=== PATIENT | female | born 1950 | race Caucasian/White ===

== ENCOUNTER → 2017-06-15 | Outpatient (CLI) | payer BC ==
[~2017-06-15] MED LIST: CMD3 PO; PRCUNK PO
--- NOTE | 2017-06-15 09:09 | DIAGNOSTIC IMAGING REPORT ---
RIGHT PELVIS UNILATERAL HIP 2 VIEW CLINICAL HISTORY: RIGHT HIP PAIN Right COMPARISON STUDY: Pelvis and hips 07/17/2016. FINDINGS: There is again noted a right total hip arthroplasty. The hardware appears intact. No abnormal periprosthetic lucency. No fracture or dislocation within the pelvis or hips. The sacrum is intact. Moderate osteoarthritis within the left hip, unchanged. IMPRESSION: 1. No acute fracture or dislocation within the pelvis or hips. 2. Right total hip arthroplasty. The hardware is intact. 3. Moderate left hip osteoarthritis, unchanged. Electronically signed by: Haroldo Gregory M.D. 06/15/2017 9:07 AM Dictated Date/Time: 06/15/2017 9:05 AM
== END | disposition home or self-care (01) ==
LOC: C.RDSM 11:06
PROVIDERS: ATTEND Physician Assistant
DX: T84.84XA Pain due to internal orthopedic prosthetic devices, implants and grafts, initial encounter (principal); Z96.641 Presence of right artificial hip joint; Y83.1 Surgical operation with implant of artificial internal device as the cause of abnormal reaction of the patient, or of later complication, without mention of misadventure at the time of the procedure; M16.12 Unilateral primary osteoarthritis, left hip

== ENCOUNTER 2021-12-14 07:58 | Observation (INO) ==
--- NOTE | 2021-11-18 15:31 | PAT Medication Instructions ---
Medication Instructions Date of Service November 18, 2021 Home Medications Blood Pressure Supplement 1 dose PO QAM amlodipine 5 mg tablet 5 mg PO QAM ascorbic acid (vitamin C) 500 mg capsule,extended release (Vitamin C) 500 mg PO DAILY cholecalciferol (vitamin D3) 50 mcg (2,000 unit) capsule (Vitamin D3) 50 mcg PO DAILY coenzyme Q10 100 mg capsule (Co Q-10) 100 mg PO DAILY losartan 100 mg tablet 100 mg PO QAM resveratrol 100 mg capsule 100 mg PO DAILY thyroid (pork) 120 mg tablet ([place]ard Thyroid) 120 mg PO Q OTHER DAY thyroid (pork) 90 mg tablet (Leonard Thyroid) 90 mg PO Q OTHER DAY Continue as directed thyroid (pork) 120 mg tablet (Leonard Thyroid) 120 mg PO Q OTHER DAY thyroid (pork) 90 mg tablet (Leonard Thyroid) 90 mg PO Q OTHER DAY STOP taking 2 weeks before surgery coenzyme Q10 100 mg capsule (Co Q-10) 100 mg PO DAILY Blood Pressure Supplement 1 dose PO QAM resveratrol 100 mg capsule 100 mg PO DAILY DO NOT take the morning of surgery losartan 100 mg tablet 100 mg PO QAM ascorbic acid (vitamin C) 500 mg capsule,extended release (Vitamin C) 500 mg PO DAILY cholecalciferol (vitamin D3) 50 mcg (2,000 unit) capsule (Vitamin D3) 50 mcg PO DAILY Take morning of surgery With a small sip of water, OTHERWISE NOTHING TO EAT OR DRINK AFTER MIDNIGHT: amlodipine 5 mg tablet 5 mg PO QAM Other Notes If you have any questions please call us at [phone] or [phone] or [phone] or [phone]
--- NOTE | 2021-11-21 12:51 | Anesthesiology Consultation ---
Date of Service November 21, 2021 Assessment & Plan (1) Encounter for pre-operative examination: Chart Review Chart Review: Acceptable Risk for Surgery (pending surgeon ordered PCP clearance and preop Covid testing results ) and Patient seen in Pre Admission Testing - Awaiting surgeon ordered PCP clearance 11/22/21 Pt has significant urinary retention post op (including with 2009 Right CASA)- (Discussed with Dr. Macdonald- can further discussed DOS in regards to what type of anesthesia would be best, will leave to surgeon's discretion if Ball would want to placed/additional medications for when admitted to floor, etc.) Per PAT appt on 11/21/21, patient denies any recent travel or large group activities. No known Covid positive exposures or Covid related symptoms. No known Covid infection in the past 90 days. Pt is vaccinated for Covid. Preop Covid testing scheduled 12/12/21 = will await results. Educated on importance of self quarantining, social distancing and wearing mask in public for the patient one week prior to surgery and after Covid testing done Right CASA 02/24/10= Done under spinal block History Surgery Operation Date: 12/14/21 08:50 Proposed Procedures p Left Total Hip Arthroplasty - Clay Johnson MD Height/Weight Height: 5 ft 8 in Weight: 78.3 kg Allergies Allergy/AdvReac Type Severity Reaction Status Date / Time No Known Allergies Verified 11/18/21 14:38 Medications Home Medications Medication Instructions Recorded Confirmed Last Taken Blood Pressure Supplement 1 dose PO QAM 11/18/21 11/18/21 Unknown amlodipine 5 mg tablet 5 mg PO QAM 11/18/21 11/18/21 Unknown ascorbic acid (vitamin C) 500 mg 500 mg PO DAILY 11/18/21 11/18/21 Unknown capsule,extended release (Vitamin C) cholecalciferol (vitamin D3) 50 50 mcg PO DAILY 11/18/21 11/18/21 Unknown mcg (2,000 unit) capsule (Vitamin D3) coenzyme Q10 100 mg capsule (Co 100 mg PO DAILY 11/18/21 11/18/21 Unknown Q-10) losartan 100 mg tablet 100 mg PO QAM 11/18/21 11/18/21 Unknown resveratrol 100 mg capsule 100 mg PO DAILY 11/18/21 11/18/21 Unknown thyroid (pork) 120 mg tablet 120 mg PO Q OTHER DAY 11/18/21 11/18/21 Unknown ([place] Thyroid) thyroid (pork) 90 mg tablet 90 mg PO Q OTHER DAY 11/18/21 11/18/21 Unknown ([place] Thyroid) Past Medical History Medical History History of anesthesia reaction Trouble urinating post op/ diaphoretic when getting out of bed after last hip surgery Hypertension Hypothyroidism Osteoarthritis SI (sacroiliac) joint dysfunction Left side Exercise / Class Metabolic Activity II 4-5 Yardwork/Stairs/Walk up hill (one flight of stairs - no chest pain or SOB ) Past Family History Family History Mother Diabetes Past Surgical History Surgical History H/O removal of cyst from tongue > benign History of bunionectomy left big toe History of colonoscopy History of tonsillectomy History of tooth extraction with implant History of total hip arthroplasty right History of urethral narrowing with surgical dilation x2, last time in Jul 2021 > after last hip surgery, could not void for 3 days post op, had to have Ball re-inserted S/P epidural steroid injection Past Anesthesia History No Hx of Anesthesia Complications (with exception to post op urinary retention; had weakness with previous Right CASA ) and No Family Hx of Anesthesia Complications History of PONV No Hx of PONV and No Hx of Motion Sickness Social History Smoking Status: Never smoker Do You Dip or Chew Tobacco: No Hx Alcohol Use: Yes Alcohol type: wine alcohol intake frequency: 0-2 drinks per day (1-2 glasses wine/day) Hx Substance Use: No substance use type: does not use Review of Systems Blood transfusion s/p childbirth - 1971 Patient denies chest pain, shortness of breath, dyspnea on exertion, reflux, cough, wheezing, palpitations. No hx of seizures, stroke, AL, apnea/snoring. No hx of blood clots. Physical Exam Vital Signs VITALS BP 120/72 P 72 TEMP 97.8 SP02 95% RESP 16 Constitutional no acute distress ENMT Mouth: no TMJ clicking Thyromental Distance: > or= 3.5 Finger Breadths (3.5) Mallampati Class: III Caps to molars Permanent implant to right top side tooth Neck neck extension not limited Respiratory normal respiratory effort; no respiratory distress Auscultation: lungs clear to auscultation bilaterally; no wheezes Cardiovascular Rate/Rhythm: regular rate and regular rhythm Heart Sounds: no murmur Vessels: no carotid bruit Musculoskeletal Spine: no pain with cervical ROM Extremities: extremities normal to inspection Psychiatric Orientation: alert Lab Results Anesthesia Preop Results Results Anesthesia Widget: WBC 4.98 K/uL (4.8-10.8) 11/21/21 Hgb 13.1 g/dL (12.0-16.0) 11/21/21 Hct 39.4 % (37-47) 11/21/21 Plt 262 K/uL (130-400) 11/21/21 Na 138 mmol/L (136-145) 11/21/21 K 3.9 mmol/L (3.5-5.1) 11/21/21 Cl 103 mmol/L (98-107) 11/21/21 CO2 27 mmol/L (21-32) 11/21/21 BUN 13 mg/dl (6-23) 11/21/21 Creat 0.78 mg/dl (0.6-1.2) 11/21/21 Glucose Level 95 mg/dl (70-99(Fasting)) 11/21/21 PT 9.8 Seconds (9.0-12.0) 11/21/21 PTT 28.0 Seconds (21.0-31.0) 11/21/21 INR 1.0 (0.9-1.1) 11/21/21 Blood Type O Positive 11/21/21 Antibody Screen NEGATIVE 11/21/21 Testing Electrocardiogram Date: 11/21/21 Normal sinus rhythm with sinus arrhythmia at 70 bpm. Incomplete right bundle branch block Nonspecific ST abnormality. Chest X-Ray Date: 11/21/21 Findings: + NAD Minimal linear left basilar opacity represents atelectasis.
--- NOTE | 2021-12-07 21:48 | History & Physical Report ---
Date of Service December 07, 2021 Assessment & Plan (1) Degenerative joint disease of left hip: Plan: Postoperative prescriptions for Percocet and Coumadin will be provided at discharge from the hospital. Anticipate discharge to home with home health services. She may have her surgery done on an outpatient basis if there are no beds available. Due to her back issues, a dual mobility cup maybe used. PDMP was checked and there are no concerning findings. The patient is aware of the COVID-19 risks associated with surgery. She is currently asymptomatic of any COVID-19 symptoms. She has had her vaccinations. She will obtain nasal swab testing 2 days prior to surgery. The patient will attend PAT and have her lab work, EKG, and chest x-ray obtained. She will also obtain medical clearance from her PCP, Dr. Pollock. History of Present Illness Chief Complaint: Left hip pain Primary Care Provider: Grover Pollock This 71-year-old female presents for her preoperative history and physical. She is scheduled to undergo a left total hip arthroplasty using dual mobility cup on 12/14/2021. The patient has had a longstanding history of left hip pain. It has been ongoing for years. It has become worse with time. She has tried conservative care including activity modification, intra-articular cortisone injection 6 months ago, and OTC medications as well as medical marijuana without lasting improvement. At this point, she elects to proceed with surgical intervention in hopes of improving her dysfunction and discomfort. No numbness or tingling. She does have a history of right total hip arthroplasty and has done well with that. She elects to proceed with the same on the left. Pain is worse with weightbearing. It is affecting her ADLs. Preoperative imaging has been obtained. Allergies Allergy/AdvReac Type Severity Reaction Status Date / Time No Known Allergies Verified 11/18/21 14:38 Home Medications Medication Instructions Recorded Confirmed Type Blood Pressure Supplement 1 dose PO QAM 11/18/21 11/18/21 History amlodipine 5 mg tablet 5 mg PO QAM 11/18/21 11/18/21 History ascorbic acid (vitamin C) 500 mg 500 mg PO DAILY 11/18/21 11/18/21 History capsule,extended release (Vitamin C) cholecalciferol (vitamin D3) 50 50 mcg PO DAILY 11/18/21 11/18/21 History mcg (2,000 unit) capsule (Vitamin D3) coenzyme Q10 100 mg capsule (Co 100 mg PO DAILY 11/18/21 11/18/21 History Q-10) losartan 100 mg tablet 100 mg PO QAM 11/18/21 11/18/21 History resveratrol 100 mg capsule 100 mg PO DAILY 11/18/21 11/18/21 History thyroid (pork) 120 mg tablet 120 mg PO Q OTHER DAY 11/18/21 11/18/21 History ([place] Thyroid) thyroid (pork) 90 mg tablet 90 mg PO Q OTHER DAY 11/18/21 11/18/21 History ([place] Thyroid) Past Med/Surg History Medical History History of anesthesia reaction Trouble urinating post op/ diaphoretic when getting out of bed after last hip surgery Hypertension Hypothyroidism Osteoarthritis SI (sacroiliac) joint dysfunction Left side Surgical History H/O removal of cyst from tongue > benign History of bunionectomy left big toe History of colonoscopy History of tonsillectomy History of tooth extraction with implant History of total hip arthroplasty right History of urethral narrowing with surgical dilation x2, last time in Jul 2021 > after last hip surgery, co uld not void for 3 days post op, had to have Ball re-inserted S/P epidural steroid injection Family History Mother Diabetes Other Coronary heart disease Social History (Updated 12/07/21 @ 21:46 by Emir Dukes PA-C) Smoking Status: Never smoker Second Hand Exposure: No; Hx Alcohol Use: Yes Alcohol type: wine Hx Substance Use: No Preferred Language: Ivorian Communication Ability: Effective 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 Physical Exam Physical Exam: Vitals: Height 176 cm, weight 79 kilograms, BMI 25.5, temperature 36.4, BP 130/74, pulse 96, O2 sat 97% on room air. Pain currently 8/10. General: Well-developed, well-nourished, elderly white female in no acute distress. Sitting in a chair. Alert and oriented. Skin: Warm and dry with good turgor. No rashes. HEENT: Normocephalic, atraumatic. Eyes: PERRLA, EOMI. Nares and oropharynx exams deferred due to COVID precautions. Heart: RRR. No MGR. Lungs: Clear to auscultation bilaterally. No crackles, rhonchi or wheezing. Good air movement. Abdomen: Bowel sounds present x4, soft, nontender. No organomegaly. No masses. Musculoskeletal: Left hip evaluation reveals no obvious asymmetry or deformity. She has pain with palpation over the anterior flexion crease. No pain with palpation over the greater trochanter. No pain over her SI joint currently. Hip flexion to 100 degrees. Very limited rotation secondary to pain. External rotation of around 20-25 degrees. Internal rotation to just beyond neutral. She is ambulating with a slightly antalgic gait. Normal function of her knee and ankle. Neurologic: Gross sensation is intact across both lower extremities by soft touch. Peripheral pulses are 2+. Results & Data Results & Data ([facility]) Diagnostic Findings Radiographic imaging previously obtained shows significant arthritic change within the left hip. Periarticular osteophytes, subchondral sclerosis, and joint space narrowing are all present. Code Status & VTE Plan VTE Prophylaxis Plan VTE Prophylaxis will be ordered: Yes
--- NOTE | 2021-12-14 06:19 | History & Physical Bridge Note ---
Date of Service December 14, 2021 History & Physical Bridge Note I have examined the patient, reviewed the History & Physical and in the interval since the performance of the History & Physical I have noted the following changes of clinical significance:consent obtained/site verified/covid screen negative. no changes noted
[~2021-12-14 07:58] MED LIST changes: +BUPIVACAINE 0.5 % 5 MG/1 ML PF 10ML VIAL ONE; -CMD3 PO; +LR 500ML BOLUS, THEN 15ML/HR IV SCH; +LR 60ML/HR IV SCH; -PRCUNK PO; +ROPIVACAINE 0.5% HCL/PF 150 MG, BUPIVACAINE 0.75% MPF 20 ML, EPINEPHrine 0.15 MG, Ketor... INFIL SCH; +TRANEXAMIC ACID 1,000 MG **IV Pre-op IV SCH; +ceFAZolin 2000MG 2,000 MG/15 ML SYR IV SCH
[2021-12-14] MEDS ORDERED: LIDOCAINE 2% 2 ML VIAL/AMP(20MG/ML) INFIL ONE (09:24)
[2021-12-14] MEDS ORDERED: MIDAZOLAM HCL 1 MG/ML 2ML VIAL ONE (09:24)
[2021-12-14] MEDS ORDERED: ONDANSETRON INJ 2 MG/ML 2 ML VIAL ONE (09:24)
[2021-12-14] MEDS ORDERED: fentaNYL citrate 100 MCG/2 ML VIAL ONE (09:24)
[2021-12-14] MEDS ORDERED: DEXAMETHASONE SOD INJ 4 MG/ML VIAL ONE (09:24)
[2021-12-14] MEDS ORDERED: PROPOFOL IV EMULSION 10 MG/ML 20 ML VIAL IV ONE (09:24)
[2021-12-14] MEDS ORDERED: PHENYLEPHRINE HCL 10 MG/ML VIAL ONE (09:25)
[2021-12-14] MEDS ORDERED: ePHEDrine sulfate 50 MG/ML SYR ONE (09:25)
[2021-12-14] MEDS ORDERED: TAMSULOSIN HCL 0.4 MG CAP PO ONE (10:12)
[2021-12-14] MEDS ORDERED: LIDOCAINE 2%/EPINEPHRINE 1:200,000 20 ML SDV ONE (10:17)
[2021-12-14] MEDS ORDERED: MEPIVACAINE HCL 1.5% 30 ML VIAL ONE (10:17)
[2021-12-14] MEDS ORDERED: ORTHO JOINT ANESTHETIC ONE (10:25)
--- NOTE | 2021-12-14 12:07 | Post Operative Brief Note ---
Immediate Post Op Note v1 Date of Surgery December 14, 2021 Pre & Post Diagnosis Operation Date: 12/14/21 10:40 Pre-Op Diagnosis: Left Hip Degenerative Joint Disease Post-Op Diagnosis: Left Hip Degenerative Joint Disease I identified the patient and participated in the time-out.: Yes Procedure Operation Date: 12/14/21 10:40 Actual Procedures p Left Total Hip Arthroplasty--Uncemented(Left) - Clay Johnson MD Surgeon Clay Johnson MD Sod Farmer Aida/Roseline Estimated Blood Loss 75 Findings Consistent with Post-Op Diagnosis
--- NOTE | 2021-12-14 12:16 | Operative Report ---
Post Operative Report Pre & Post Diagnosis Operation Date: 12/14/21 10:40 Pre-Op Diagnosis: Left Hip Degenerative Joint Disease Post-Op Diagnosis: Left Hip Degenerative Joint Disease I identified the patient and participated in the time-out.: Yes Procedure Operation Date: 12/14/21 10:40 Actual Procedures p Left Total Hip Arthroplasty--Uncemented(Left) - Clay Johnson MD Surgeon Marcell Johnson Utility Driver Aida/Roseline Estimated Blood Loss 75 Findings Consistent with Post-Op Diagnosis Consistent with post op diagnosis Specimens No specimens Description of Procedure I participated in prepping dressing and assisted Dr. Johnson during the procedure. Please see Dr. Johnson note. I attest to the content of the Intraoperative Record and any orders documented therein. Any exceptions are noted below. Supervising Physician Co-Signing Physician Notes Dr. Johnson
--- NOTE | 2021-12-14 12:17 | Operative Report ---
Post Operative Report Pre & Post Diagnosis Operation Date: 12/14/21 10:40 Pre-Op Diagnosis: Left Hip Degenerative Joint Disease Post-Op Diagnosis: Left Hip Degenerative Joint Disease I identified the patient and participated in the time-out.: Yes Procedure Operation Date: 12/14/21 10:40 Actual Procedures p Left Total Hip Arthroplasty--Uncemented(Left) - Clay Johnson MD Surgeon LUANN Johnson MD Timing Inspector Aida/Roseline ESPINOZA Estimated Blood Loss 75 Findings Consistent with Post-Op Diagnosis see operative report Specimens see operative report Drains none Complications none Disposition Accompanied Patient To Recovery: Yes Indications This 71-year-old female presented to the office with complaints of persisting left hip pain. She had tried conservative care measures without improvement. She elected to proceed with surgical intervention after being educated about potential risks and outcomes. Preoperative imaging was obtained. Description of Procedure Patient was administered an epidural anesthetic and then taken to the operating room where she was given sedation. She was prepped and draped in the usual sterile fashion. Please see Dr. Johnson's operative report for specifics of the procedure. I was present for the entire case from initial patient positioning through final wound closure. Assistance was provided in tissue retraction, hemostasis, trial implant placement, final implant placement, and final wound closure. Patient was taken to the recovery room in satisfactory condition. I attest to the content of the Intraoperative Record and any orders documented therein. Any exceptions are noted below.
--- NOTE | 2021-12-14 12:20 | Operative Report (OR) ---
DATE OF PROCEDURE: 12/14/2021. SURGEON: Clay Johnson MD DIGITAL ASSOCIATE: Fozia Parra MD SECOND DIGITAL ASSOCIATE: Emir Dukes PA-C. PREOPERATIVE DIAGNOSIS: Osteoarthritis with dysplasia, left hip. POSTOPERATIVE DIAGNOSIS: Osteoarthritis with dysplasia, left hip. OPERATION PERFORMED: Noncemented left total hip replacement. SUMMARY OF IMPLANTS: DePuy implants, acetabular shell sector cup 52, hole eliminator, cancellous scr ew 6.5 x 30, polyethylene liner 36 x 52 +4 neutral liner, 3 high offset Tri-Lock, 36 +5 ceramic head. ESTIMATED BLOOD LOSS: Roughly 75 mL. CRYSTALLOID: Per anesthesia. BONE PATHOLOGY: Pending. DEEP VENOUS THROMBOSIS PROPHYLAXIS: Per protocol. PERIOPERATIVE SITUATION: Medically cleared female with intractable left hip pain and her right hip d one years ago, has done well with that, wishes to proceed with surgical treatment for the left hip. She understands the risks and consequences. DESCRIPTION OF PROCEDURE: The patient was appropriately identified, site verified, consent verified. Antibiotics confirmed as being given. The left lower extremity was prepped and draped in the usual routine fashion with the patient in right lateral decubitus position. Posterior approach to the hip was carried out. Full thickness flaps raised. IT band fascia and gluteal roman fascia then opene d. Care was taken to protect the sciatic nerve. The short external rotators were released. The cap sera was then T'd. The hip was dislocated. The femoral neck was resected. The labrum was then exci sed. There was marked dysplasia to the acetabulum. The head had significant erosions and eburnation . Loose bodies were removed. The labrum was debrided. Serial reaming was carried up to 52 and a 52 cup impacted into appropriate anteversion and inclination. It was then also additionally secured wi th a 6.5 x 30 screw with excellent purchase. Some osteophytes were resected. The trial liner was se ated. The femur was then flexed and internally rotated. Proximal femur prepared with a rongeur, wash box operator, canal finder, lateralizing rasp and serial broaching up to a size 3. The high offset size 3 +5 gave exquisite stability. It was therefore elected not to go to the dual mobility even though [facility] had the ability to do so. The leg lengths were good. The hip was then dislocated. All trial elements remaining were removed. The wound irrigated with Betadine Pulsavac, the hole eliminator seated, the permanent liner seated, the permanent stem and head seated. The hip was then reduced. It was stable in all planes and the w ound was then irrigated one final time and closed with #2 Vicryl for the capsule and short external r otators, #2 Vicryl for the IT band and gluteal roman fascia, #2 Vicryl for the deep fat, 2-0 Vicryl for the superficial subcutaneous layer and stainless steel clips for skin. Appropriate dressing javi lied. The patient was transferred to recovery room in satisfactory condition, having tolerated the p rocedure well. Job ID: [id number]
--- NOTE | 2021-12-14 12:39 | XRay Report ---
XR pelvis 1-2V routine HISTORY: 71 years-old Female S/P L CASA [total joint arthroplasty COMPARISON: Pelvis and hip radiograph 10/20/2021 TECHNIQUE: AP view of the pelvis FINDINGS: Bilateral hip total joint arthroplasties. Expected postoperative soft tissue swelling with deep tissu e air lateral to the left hip with lateral skin talya. No acute fracture, dislocation or unexpected opaque foreign body. Pelvic basin phleboliths. IMPRESSION: Left hip total joint arthroplasty with expected postoperative changes. ACT 112: Negative or not required by law. The above report was generated using voice recognition software. It may contain grammatical, syntax o r spelling errors. Electronically signed by: Mikel Reynolds M.D. 12/14/2021 12:38 PM
[2021-12-14] MEDS ORDERED: VANCOMYCIN HCL 1,250 MG in SODIUM CHLORIDE 0.9% 250 ML IV ONE (12:45)
--- NOTE | 2021-12-14 13:04 | Progress Notes ---
DATE OF NOTE: 12/14/2021. SUBJECTIVE: Postop check status post left total hip replacement. The patient is doing well and has no major issues. She denies any chest pain, shortness of breath, fever, chills, nausea, vomiting or headache. OBJECTIVE: VITAL SIGNS: Stable. She is afebrile. NEUROVASCULAR CHECK: Limited by epidural. IMAGES: Postop x-rays look excellent. ASSESSMENT: Doing well. PLAN: Continue postoperative care pathway and potentially discharge to home tomorrow if she has no urinary retention. Job ID: [id number] revisit at 3 pm revealed no issues and intact femoral and sciatic nerves. EFREM
--- NOTE | 2021-12-14 13:16 | Discharge Summary (DS) ---
DATE OF ADMISSION: 12/14/2021. DATE OF POTENTIAL DISCHARGE: 12/15/2021. CHIEF COMPLAINT: Left hip pain. HISTORY OF PRESENT ILLNESS: The patient underwent elective left total hip replacement. To date, pos top course has been uneventful. She had a problem with urinary retention last time and things were ad justed at this time with anesthesia. She had an epidural, instead it was spinal and she had a dose o f Flomax. Presently, she is doing well. Postop x-rays look excellent. Hospital course to this point has been uneventful. PREADMISSION MEDICATIONS: Include amlodipine, vitamin C, vitamin D, coenzyme Q10, losartan, resverat rol, thyroid tablet. PAST MEDICAL HISTORY: Remarkable for anesthesia with urinary retention, hypertension, hypothyroidism , osteoarthritis, SI joint dysfunction. PAST SURGICAL HISTORY: Remarkable for tongue cyst, bunionectomy, colonoscopies, tonsillectomy, tooth surgery, right total hip replacement, urethral narrowing with surgical dilatation in the past, statu s post epidural steroid. FAMILY HISTORY: Noncontributory. Has some coronary artery disease and diabetes in the family, but n othing pertinent to her right now. SOCIAL HISTORY: Reveals that she does not smoke. She will use social alcohol. She has a spouse. S he is retired. REVIEW OF SYSTEMS: Reveals no chest pain, shortness of breath, fever, chills, nausea, vomiting, or h eadache. VITAL SIGNS: Stable. She is afebrile. ASSESSMENT: Overall doing well status post left total hip replacement. Continue postoperative care pathway. Discharge home tomorrow if she has no trouble with urinary retention. Job ID: [id number]
[2021-12-14] MEDS ORDERED: bisacodyL 10 MG SUPP PR PRN (14:12)
[2021-12-14] MEDS ORDERED: ONDANSETRON INJ 2 MG/ML 2 ML VIAL IV PRN (14:12)
[2021-12-14] MEDS ORDERED: diphenhydrAMINE 50 MG/ML VIAL IV PRN (14:12)
[2021-12-14] MEDS ORDERED: MAGNESIUM HYDROXIDE SUSP 30 ML UDC PO PRN (14:12)
[2021-12-14] MEDS ORDERED: ALUMINUM/MAGNESIUM SUSP 30 ML UDC PO PRN (14:12)
[2021-12-14] MEDS ORDERED: HYDROmorphone INJ 0.5 MG/0.5 ML SYR IV PRN (14:12)
[2021-12-14] MEDS ORDERED: METOCLOPRAMIDE HCL INJ 5 MG/ML 2 ML VIAL IV PRN (14:12)
[2021-12-14] MEDS ORDERED: NALOXONE HCL 0.4 MG/1 ML VIAL/CARP IV PRN (14:12)
[2021-12-14] MEDS ORDERED: SODIUM CHLORIDE 0.9% 1000ML 1,000 ML IV SCH (14:12)
--- NOTE | 2021-12-14 14:24 | Anesthesia Procedure Note ---
Date of Service December 14, 2021 Anesthesia Post Epidural Note Vital Signs Vital Signs: Temp Pulse Resp BP Pulse Ox 36.2 C L 70 18 112/71 96 12/14/21 13:55 12/14/21 13:55 12/14/21 13:55 12/14/21 13:55 12/14/21 13:55 Pain Intensity Left Hip: Pain Intensity: 4 Notes Mental Status: alert / awake / arousable and participated in evaluation Patient Amnestic to Procedure: Yes Nausea / Vomiting: adequately controlled Pain: adequately controlled Airway Patency, RR, SpO2: stable & adequate BP & HR: stable & adequate Hydration State: stable & adequate Neuraxial Anesthesia: was administered and sensory block resolved Anesthetic Complications: no major complications apparent and Pt Satisfied with anesthetic care Epidural: Removed without complications and With tip intact
--- NOTE | 2021-12-14 14:25 | Anesthesiology Progress Note ---
Date of Service December 14, 2021 Anesthesia Post Procedure Vital Signs Vital Signs: Temp Pulse Pulse Resp BP Pulse Ox 12/14/21 13:55 36.2 C L 70 18 112/71 96 12/14/21 13:35 60 13 103/59 L 94 12/14/21 13:25 36.3 C L 61 16 100/60 94 12/14/21 13:15 59 L 16 100/55 L 94 12/14/21 13:05 68 16 107/60 98 12/14/21 12:55 68 15 103/61 98 12/14/21 12:45 73 18 114/48 L 99 12/14/21 12:35 75 16 93/52 L 97 12/14/21 12:25 76 16 100/55 L 97 12/14/21 12:15 36.2 C L 78 14 83/49 L 97 12/14/21 08:28 36.8 C 75 18 158/93 H 100 Pain Intensity Left Hip: Pain Intensity: 4 Transfer of Care Handoff Completed per policy Notes Mental Status: alert / awake / arousable and participated in evaluation Patient Amnestic to Procedure: Yes Nausea / Vomiting: adequately controlled Pain: adequately controlled Airway Patency, RR, SpO2: stable & adequate BP & HR: stable & adequate Hydration State: stable & adequate Neuraxial Anesthesia: was administered and sensory block resolved Anesthetic Complications: no major complications apparent and Pt Satisfied with anesthetic care
[2021-12-14] MEDS ORDERED: ORTHO WARFARIN NOMOGRAM SCH (14:30)
[2021-12-14] MEDS: ACETAMINOPHEN 500 MG TAB PO SCH ×2 (15:23→22:51)
[2021-12-14] MEDS: KETOROLAC TROMETHAMINE 15 MG/ML VIAL IV SCH ×2 (15:23→20:44)
[2021-12-14] MEDS ORDERED: WARFARIN SOD 5 MG TAB PO ONE (15:36)
[2021-12-14] MEDS: FERROUS GLUCONATE 324 MG TAB PO SCH (17:32)
[2021-12-14] MEDS: ceFAZolin 2000MG 2,000 MG/15 ML SYR IV SCH (17:53)
[2021-12-14] MEDS: oxyCODONE HCL IR 5 MG TAB (IMMEDIATE RELEASE) PO PRN (18:03)
[2021-12-14] MEDS ORDERED: TRANEXAMIC ACID / 0.7% NACL 1,000 MG/100 ML BAG IV SCH (18:30)
[2021-12-14] MEDS: DOCUSATE SODIUM 100 MG CAP PO SCH (20:44)
[2021-12-14] MEDS ORDERED: SENNA 8.6 MG TAB PO SCH (21:00)
[2021-12-15] MEDS: ceFAZolin 2000MG 2,000 MG/15 ML SYR IV SCH (01:31)
[2021-12-15] MEDS: oxyCODONE HCL IR 5 MG TAB (IMMEDIATE RELEASE) PO PRN ×2 (01:52→12:48)
[2021-12-15] MEDS ORDERED: COUGH DROP (SUGAR FREE) LOZ 24 LOZ/1 BOX BUCCAL ONE (01:58)
[2021-12-15] MEDS: KETOROLAC TROMETHAMINE 15 MG/ML VIAL IV SCH ×2 (02:00→08:21)
[2021-12-15] MEDS: ACETAMINOPHEN 500 MG TAB PO SCH (05:57)
[2021-12-15 06:12] LABS: Hematocrit (blood only) 31.6 % (37-47); Hemoglobin 10.8 g/dL (12.0-16.0); Immature Granulocytes # (auto) 0.04 K/uL (0.00-0.02); Immature Granulocytes % (auto) 0.3 %; Lymphocytes # (auto) 1.12 K/uL (1.2-3.4); Lymphocytes % (auto) 9.7 %; Mean Corpuscular Hemoglobin 32.4 pg (25-34); Mean Corpuscular Hgb Conc 34.2 g/dL (32-36); Mean Corpuscular Volume 94.9 fL (80-100); Mean Platelet Volume 10.2 fL (7.4-10.4); Monocytes # (auto) 0.93 K/uL (0.11-0.59); Neutrophils # (auto) 9.49 K/uL (1.4-6.5); Platelet Count 208 K/uL (130-400); RDW Coefficient of Variation 12.4 % (11.5-14.5); RDW Standard Deviation 42.9 fL (36.4-46.3); Red Blood Count 3.33 M/uL (4.2-5.4); White Blood Count 11.58 K/uL (4.8-10.8)
[2021-12-15 06:14] LABS: Prothrombin Time 10.5 Seconds (9.0-12.0)
[2021-12-15 06:28] LABS: BUN Creatinine Ratio 20.5 (10-20); Calcium 8.4 mg/dl (8.5-10.1); Creatinine Clr Calc Pharmacy 74.9 ml/min; Est GFR (African American) 89.9 ml/min; Est GFR (Non-African American) 77.6 ml/min
[2021-12-15] MEDS ORDERED: ARMOUR THYROID 30 MG TAB PO SCH (06:30)
--- NOTE | 2021-12-15 06:51 | Progress Notes ---
DATE OF SERVICE: 12/14/2021. SUBJECTIVE: Postop day #1 status post left total hip replacement. The patient is doing well. She states she noticed just a slight pelvic tilt when she was up bare in both legs. I told her this is likely based on slight inequality of her leg, based on the need for stability, her back also being slightly curved. I told her we can adjust this later on when she is more flexible. It is not excessive. She was reassured. She denies any chest pain, shortness of breath, fever, chills, nausea, vomiting or headache. OBJECTIVE: Vital signs are stable. She is afebrile. Neurovascular check femoral sciatic nerve is normal. Wound dressing clean, dry and intact. Hip motion is supple, pain free. LABORATORY DATA: A.m. labs reveal hematocrit stable at 31. INR is 1.0. ASSESSMENT: Doing well status post left total hip replacement. PLAN: To discharge today after PT/OT. She is voiding, eating, and drinking. She is able to get to the bathroom, etc. At this point, just needs to develop more confidence. Needs to have some postural discretion training and can be discharged today. Follow up in 2 weeks for staple removal. Job ID: [id number] [facility]
[2021-12-15] MEDS ORDERED: dexAMETHasone 10 MG in SYRINGE 0 ML IV SCH (08:00)
[2021-12-15] MEDS: DOCUSATE SODIUM 100 MG CAP PO SCH (08:19)
[2021-12-15] MEDS: FERROUS GLUCONATE 324 MG TAB PO SCH (08:20)
[2021-12-15] MEDS: amLODIPine BESYLATE 5 MG TAB PO SCH ×2 (08:20→11:12)
[2021-12-15] MEDS: LOSARTAN POTASSIUM 50 MG TAB PO SCH ×2 (08:20→11:12)
[2021-12-15] MEDS ORDERED: RESVERATROL 100 MG PO SCH (09:00)
[2021-12-15] MEDS ORDERED: ASCORBIC ACID 500 MG TAB PO SCH (09:00)
[2021-12-15] MEDS ORDERED: MULTIVITAMIN TAB PO SCH (09:00)
--- NOTE | 2021-12-15 09:52 | Orthopedic Progress Note ---
Date of Service December 15, 2021 Assessment & Plan (1) Status post total hip replacement, left: Plan: Patient's dressing was changed this morning by me. She will leave this in place through the weekend. It may be changed on Sunday if there is soiling. She may also leave it in place until she sees me in the office in 2 weeks for staple removal. Written discharge instructions were provided. Maintain total hip precautions. Discharge to home today with home health services after PT/OT. She will receive her Coumadin dose here in the hospital prior to discharge. Continue Coumadin 4 mg daily through the weekend. Have her blood rechecked on Sunday. Patient did mention that she feels as though 1 leg is longer than the other. She was reminded that she had a significantly arthritic hip and that with her legs out to length now, she may feel a little longer on the new surgical hip because of the previous shortening and the duration of her symptoms. Her back may also be a component in her sensation. We'll reassess over the next few months as she gets use to her new prosthesis. Admission and Anticipated Discharge Date Admission Date: December 14, 2021 Subjective Patient is seen in her room this morning. States she had difficulty sleeping overnight. She finally got comfortable around 3 AM. She has been out of bed numerous times going to the bathroom. She feels ready for discharge to home. Denies any chest pain, shortness of breath, nausea, vomiting, or abdominal pain. She does complain of some soreness across her hip flexor tendons bilaterally. She thinks she was very tense/anxious yesterday and may have had some spasms. Review of Systems Review of Systems: Unchanged from yesterday. Physical Exam Physical Exam: General: Well-developed, well-nourished, elderly white female, in no acute distress. Sitting in bed. Alert and oriented. Skin: Warm and dry with good turgor. Postsurgical dressing is in place. Upon removal, there is a very small amount of dried blood on her dressings. No active bleeding. No ecchymosis or erythema. No edema. Her wound looks good. Musculoskeletal: Patient has intact hip flexion, knee extension, and ankle range of motion. She is able to ambulate in the room. She is able to stand from her bed without assistance. Neurologic: Gross sensation is intact across the left leg by soft touch. Results & Data ([facility]) Vital Signs (Past 12 Hours) Vital Signs Temp Pulse Pulse Resp BP Pulse Ox 12/15/21 07:51 36.4 C L 80 14 110/80 99 12/15/21 05:59 36.6 C 84 16 134/76 99 12/15/21 01:25 36.5 C 85 14 127/79 97 Laboratory Results H&H today are 10.8 and 31.6. White count of 11.58. INR is 1.0. Sodium 135, potassium 4.0, chloride 104, CO2 26, BUN 16, creatinine 0.78. Glucose 122
[2021-12-15] MEDS ORDERED: WARFARIN SOD 5 MG TAB PO ONE (11:03)
[2021-12-16] MEDS ORDERED: ARMOUR THYROID 30 MG TAB PO SCH (06:30)
== END 2021-12-15 14:05 | disposition home health service (06) ==
LOC: 3E 07:58 → ASU 07:58
DX: Z79.899 Other long term (current) drug therapy; I10 Essential (primary) hypertension; E03.9 Hypothyroidism, unspecified; M16.12 Unilateral primary osteoarthritis, left hip